=== PATIENT | male | born 1950 | race Caucasian/White ===

== ENCOUNTER → 2016-12-18 | Outpatient (CLI) | payer MEDICARE, BC ==
[~2016-12-18] MED LIST: ACTOS 15MG TAB15 MG PO; ACTOS30 MG PO; ALLEGRA 180MG180 MG PO; ALLEGRA-D 24HR1 T24 PO; ALLERGY SHOTS; AMOXICILLIN 8751 TAB PO; ASPIRIN 32325 MG/TAB PO; ASPIRIN 81M81 MG/TA2 PO; ASPIRIN E.C.325 MG PO; CEPHALEXIN500 M1 PO; CLARITIN-D 10 M1 T24 PO; FLEXERIL 1010 MG/TAB PO; FLONASE NASAL S16 GM NS; GLUCOPHAGE500 MG/TAB PO; GLUCOSAMINE/CHONDROI PO; HCTZ 25MG TAB25 MG PO; LEVAQUIN 750MG750 M1 PO; NORCO 325 MG-51 TAB PO; PHENERGAN 25 TA25 MG PO; PREDNISONE20 MG PO; PRINIVIL10 MG PO; PROAIR HFA0.09 MG/AC IH; TUSS PO; TYLENOL/CODEINE1 ML PO; VENTOLIN0.09 MG; ZITHROMAX Z PA250 MG PO
== END ==
LOC: COL.RAD 08:30
PROVIDERS: Psychiatry & Neurology Neurology
DX: Z13.89 Encounter for screening for other disorder (principal); H93.92 Unspecified disorder of left ear
CPT/HCPCS: A9585

== ENCOUNTER 2017-02-01 22:53 | Observation (INO) | payer MEDICARE, BC ==
[~2017-02-01] VITALS: Ht 182.9 cm; Wt 143.4 kg
[~2017-02-01 22:53] MED LIST changes: -ACTOS 15MG TAB15 MG PO; -ACTOS30 MG PO; -ALLEGRA-D 24HR1 T24 PO; -CLARITIN-D 10 M1 T24 PO; -FLONASE NASAL S16 GM NS; -LEVAQUIN 750MG750 M1 PO; -PREDNISONE20 MG PO; -PROAIR HFA0.09 MG/AC IH
[2017-02-01 23:32] LABS: BASO % 0.6 % (0.0-2.0); EOS # 0.3 (0.0-0.7); EOS % 4.2 % (0-4.0); GRAN # 3.7 (1.4-6.5); GRAN % 56.7 % (42.2-75.2); HEMATOCRIT 46.6 % (42.0-52.0); HEMOGLOBIN 15.4 g/dl (13.5-18.0); LYMPH # 1.6 (1.2-3.4); LYMPH % 24.3 % (20.0-51.0); MEAN CELL VOLUME 90 fl (80.0-100.0); MEAN CORPUSCULAR HEMOGLOBIN 30 pg (27.0-31.0); MEAN CORPUSCULAR HGB CONC 33 g/dl (33.0-37.0); MEAN PLATELET VOLUME 10.5 fl (7.4-10.4); MONO # 0.8 (0.1-0.6); MONO % 12.3 % (1.7-9.3); PLATELET COUNT 170 K/mm3 (130-400); RED BLOOD COUNT 5.17 M/mm3 (4.20-5.60); REDCELL DISTRIBUTION WIDTH-CV 13.8 % (11.5-14.5); WHITE BLOOD COUNT 6.4 K/mm3 (4.8-10.8)
[2017-02-01 23:42] LABS: ADJUSTED CALCIUM 9.1 mg/dL (8.4-10.2); ALANINE AMINOTRANSFERASE 33 U/L (21-72); ALKALINE PHOSPHATASE 73 U/L (50-136); ANION GAP 12 mmol/L (7-16); BILIRUBIN,TOTAL 0.6 mg/dL (0.0-1.0); BLOOD UREA NITROGEN 19 mg/dL (9-20); CALCIUM 9.1 mg/dL (8.4-10.2); CARBON DIOXIDE 28 mmol/L (22-30); CHLORIDE 97 mmol/L (98-107); CREATININE, serum 0.98 mg/dL (0.66-1.25); GLUCOSE 139 mg/dL (74-106); POTASSIUM 4.1 mmol/L (3.4-5.0); SODIUM 137 mmol/L (137-145); TOTAL PROTEIN 7.1 gm/dL (6.4-8.2)
[2017-02-01 23:54] LABS: B-TYPE NATRIURETIC PEPTIDE 43 pg/mL (0-125)
[2017-02-01 23:55] LABS: TROPONIN-I < 0.012 ng/mL (0.000-0.034)
[2017-02-02 00:02] LABS: INR 1.1 (0.8-3.0); PROTHROMBIN TIME 11.8 SECONDS (9.7-12.8)
[2017-02-02 00:05] LABS: PARTIAL THROMBOPLASTIN TIME 38.8 SECONDS (26.0-37.0)
[2017-02-02] MEDS ORDERED: ACTOS 15MG TAB15 MG PO (02:42)
[2017-02-02 03:17] VITALS: BP 126/53; PULSE 77; TEMP 98.9
[2017-02-02 08:16] VITALS: BP 121/69; PULSE 88; TEMP 98
[2017-02-02] MEDS ORDERED: ACTOS30 MG PO (10:02)
[2017-02-02 12:41] VITALS: BP 146/79; PULSE 107; TEMP 98.4
[2017-02-02] MEDS ORDERED: FLONASE NASAL S16 GM NS (15:59)
[2017-02-02] MEDS ORDERED: PROAIR HFA0.09 MG/AC IH (16:01)
[2017-02-02] MEDS ORDERED: LEVAQUIN 750MG750 M1 PO (16:04)
== END 2017-02-02 17:00 | disposition home or self-care (01) ==
LOC: COL.ER 22:53 → MEDICAL 02-02 01:31
PROVIDERS: Emergency Medicine
DX: J18.8 Other pneumonia, unspecified organism (principal); G47.33 Obstructive sleep apnea (adult) (pediatric); I10 Essential (primary) hypertension; E11.9 Type 2 diabetes mellitus without complications; I87.2 Venous insufficiency (chronic) (peripheral)
CPT/HCPCS: 99233-AI; 99238; G0378; J0696; J1650; J1940; J7030; J7512

== ENCOUNTER 2017-02-04 08:50 | Emergency (ER) | payer MEDICARE, BC ==
[2005-10-23 20:04] VITALS: BP 123/74
[~2017-02-04] VITALS: Ht 182.9 cm; Wt 147.7 kg
[~2017-02-04 08:50] MED LIST changes: +ACTOS 15MG TAB15 MG PO; +ACTOS30 MG PO; +FLONASE NASAL S16 GM NS; +LEVAQUIN 750MG750 M1 PO; +PROAIR HFA0.09 MG/AC IH
[2017-02-04 08:53] VITALS: TEMP 99.6
[2017-02-04 09:28] LABS: BASO % 0.5 % (0.0-2.0); EOS # 0.2 (0.0-0.7); GRAN # 5.9 (1.4-6.5); GRAN % 75.2 % (42.2-75.2); HEMATOCRIT 46.4 % (42.0-52.0); HEMOGLOBIN 15.4 g/dl (13.5-18.0); LYMPH # 0.7 (1.2-3.4); LYMPH % 9.2 % (20.0-51.0); MEAN CELL VOLUME 90 fl (80.0-100.0); MEAN CORPUSCULAR HEMOGLOBIN 30 pg (27.0-31.0); MEAN CORPUSCULAR HGB CONC 33 g/dl (33.0-37.0); MEAN PLATELET VOLUME 10.4 fl (7.4-10.4); MONO # 0.8 (0.1-0.6); MONO % 10.7 % (1.7-9.3); PLATELET COUNT 165 K/mm3 (130-400); RED BLOOD COUNT 5.18 M/mm3 (4.20-5.60); REDCELL DISTRIBUTION WIDTH-CV 13.9 % (11.5-14.5); WHITE BLOOD COUNT 7.8 K/mm3 (4.8-10.8)
[2017-02-04 09:41] LABS: ADJUSTED CALCIUM 9.4 mg/dL (8.4-10.2); ALANINE AMINOTRANSFERASE 34 U/L (21-72); ALBUMIN 3.9 gm/dL (3.5-5.0); ALKALINE PHOSPHATASE 56 U/L (50-136); ANION GAP 13 mmol/L (7-16); BILIRUBIN,TOTAL 0.9 mg/dL (0.0-1.0); BLOOD UREA NITROGEN 16 mg/dL (9-20); CALCIUM 9.3 mg/dL (8.4-10.2); CARBON DIOXIDE 24 mmol/L (22-30); CHLORIDE 98 mmol/L (98-107); CREATININE, serum 0.81 mg/dL (0.66-1.25); GLUCOSE 172 mg/dL (74-106); POTASSIUM 3.8 mmol/L (3.4-5.0); SODIUM 134 mmol/L (137-145); TOTAL PROTEIN 7.1 gm/dL (6.4-8.2)
[2017-02-04 09:47] LABS: INR 1.2 (0.8-3.0); PROTHROMBIN TIME 13.3 SECONDS (9.7-12.8)
[2017-02-04 09:50] LABS: PARTIAL THROMBOPLASTIN TIME 36.1 SECONDS (26.0-37.0)
[2017-02-04 09:53] LABS: B-TYPE NATRIURETIC PEPTIDE 45 pg/mL (0-125)
[2017-02-04 09:54] LABS: TROPONIN-I < 0.012 ng/mL (0.000-0.034)
[2017-02-04] MEDS ORDERED: CLARITIN-D 10 M1 T24 PO (10:15)
[2017-02-04] MEDS ORDERED: ACTOS30 MG PO (10:17)
[2017-02-04 13:09] VITALS: BP 144/79; PULSE 100
== END 2017-02-04 13:09 | disposition home or self-care (01) ==
LOC: COL.ER 08:50
PROVIDERS: Family Medicine
DX: J18.9 Pneumonia, unspecified organism (principal); E11.9 Type 2 diabetes mellitus without complications; I11.0 Hypertensive heart disease with heart failure; I50.30 Unspecified diastolic (congestive) heart failure; Z79.84 Long term (current) use of oral hypoglycemic drugs
CPT/HCPCS: J2930

== ENCOUNTER 2017-02-06 10:18 | Emergency (ER) | payer MEDICARE, BC ==
[2005-10-23 20:04] VITALS: BP 123/74
[~2017-02-06] VITALS: Ht 180.3 cm; Wt 147.7 kg
[2017-02-06 10:18] VITALS: BP 146/89; TEMP 96.9
[~2017-02-06 10:18] MED LIST changes: +CLARITIN-D 10 M1 T24 PO
[2017-02-06] MEDS ORDERED: ALLEGRA-D 24HR1 T24 PO (10:25)
[2017-02-06 11:11] LABS: BASO % 0.5 % (0.0-2.0); EOS # 0.2 (0.0-0.7); EOS % 3.8 % (0-4.0); GRAN # 4.4 (1.4-6.5); GRAN % 69.6 % (42.2-75.2); HEMATOCRIT 45.5 % (42.0-52.0); LYMPH # 0.8 (1.2-3.4); LYMPH % 12.2 % (20.0-51.0); MEAN CELL VOLUME 90 fl (80.0-100.0); MEAN CORPUSCULAR HEMOGLOBIN 30 pg (27.0-31.0); MEAN CORPUSCULAR HGB CONC 33 g/dl (33.0-37.0); MEAN PLATELET VOLUME 10.3 fl (7.4-10.4); MONO # 0.8 (0.1-0.6); MONO % 12.5 % (1.7-9.3); PLATELET COUNT 179 K/mm3 (130-400); RED BLOOD COUNT 5.04 M/mm3 (4.20-5.60); REDCELL DISTRIBUTION WIDTH-CV 14.1 % (11.5-14.5); WHITE BLOOD COUNT 6.4 K/mm3 (4.8-10.8)
[2017-02-06 11:24] LABS: ADJUSTED CALCIUM 9.1 mg/dL (8.4-10.2); ALANINE AMINOTRANSFERASE 36 U/L (21-72); ALBUMIN 3.8 gm/dL (3.5-5.0); ALKALINE PHOSPHATASE 76 U/L (50-136); ANION GAP 13 mmol/L (7-16); BILIRUBIN,TOTAL 0.7 mg/dL (0.0-1.0); BLOOD UREA NITROGEN 24 mg/dL (9-20); CALCIUM 8.9 mg/dL (8.4-10.2); CARBON DIOXIDE 23 mmol/L (22-30); CHLORIDE 101 mmol/L (98-107); CREATININE, serum 1.08 mg/dL (0.66-1.25); GLUCOSE 140 mg/dL (74-106); POTASSIUM 3.8 mmol/L (3.4-5.0); SODIUM 137 mmol/L (137-145); TOTAL PROTEIN 6.9 gm/dL (6.4-8.2)
[2017-02-06 11:35] LABS: B-TYPE NATRIURETIC PEPTIDE 90 pg/mL (0-125)
[2017-02-06 11:36] LABS: TROPONIN-I < 0.012 ng/mL (0.000-0.034)
[2017-02-06] MEDS ORDERED: PREDNISONE20 MG PO (12:50)
[2017-02-06 13:06] VITALS: PULSE 93
== END 2017-02-06 13:06 | disposition home or self-care (01) ==
LOC: COL.ER 10:18
PROVIDERS: Emergency Medicine
DX: J20.9 Acute bronchitis, unspecified (principal); E11.9 Type 2 diabetes mellitus without complications; I10 Essential (primary) hypertension; Z79.84 Long term (current) use of oral hypoglycemic drugs
CPT/HCPCS: J2930

== ENCOUNTER → 2017-03-02 | Outpatient (CLI) | payer MEDICARE, BC ==
[~2017-03-02] MED LIST changes: +ALLEGRA-D 24HR1 T24 PO; +PREDNISONE20 MG PO
== END ==
LOC: COL.RAD 10:10
DX: R06.02 Shortness of breath (principal); Z87.01 Personal history of pneumonia (recurrent)
CPT/HCPCS: Q9967

== ENCOUNTER 2017-04-25 01:45 | Emergency (ER) | payer MEDICARE, BC ==
[2005-10-23 20:04] VITALS: BP 123/74
[~2017-04-25] VITALS: Ht 180.3 cm; Wt 147.7 kg
[2017-04-25 01:55] VITALS: TEMP 97.5
[2017-04-25 02:34] LABS: BASO % 0.6 % (0.0-2.0); EOS # 0.3 (0.0-0.7); EOS % 4.5 % (0-4.0); GRAN # 3.9 (1.4-6.5); GRAN % 56.4 % (42.2-75.2); HEMATOCRIT 45.9 % (42.0-52.0); HEMOGLOBIN 15.2 g/dl (13.5-18.0); LYMPH # 1.7 (1.2-3.4); LYMPH % 24.9 % (20.0-51.0); MEAN CELL VOLUME 91 fl (80.0-100.0); MEAN CORPUSCULAR HEMOGLOBIN 30 pg (27.0-31.0); MEAN CORPUSCULAR HGB CONC 33 g/dl (33.0-37.0); MEAN PLATELET VOLUME 10.4 fl (7.4-10.4); MONO # 0.8 (0.1-0.6); MONO % 11.9 % (1.7-9.3); PLATELET COUNT 175 K/mm3 (130-400); RED BLOOD COUNT 5.06 M/mm3 (4.20-5.60); REDCELL DISTRIBUTION WIDTH-CV 13.8 % (11.5-14.5); WHITE BLOOD COUNT 6.9 K/mm3 (4.8-10.8)
[2017-04-25 02:40] LABS: ANION GAP 12 mmol/L (7-16); BLOOD UREA NITROGEN 16 mg/dL (9-20); CALCIUM 8.8 mg/dL (8.4-10.2); CARBON DIOXIDE 23 mmol/L (22-30); CHLORIDE 101 mmol/L (98-107); CREATININE, serum 0.94 mg/dL (0.66-1.25); GLUCOSE 137 mg/dL (74-106); POTASSIUM 4.1 mmol/L (3.4-5.0); SODIUM 136 mmol/L (137-145)
[2017-04-25 02:52] LABS: B-TYPE NATRIURETIC PEPTIDE 46 pg/mL (0-125)
[2017-04-25 02:53] LABS: TROPONIN-I < 0.012 ng/mL (0.000-0.034)
[2017-04-25 03:50] VITALS: BP 138/89; PULSE 89
== END 2017-04-25 03:53 | disposition home or self-care (01) ==
LOC: COL.ER 01:45
PROVIDERS: Emergency Medicine
DX: J06.9 Acute upper respiratory infection, unspecified (principal); R06.02 Shortness of breath; I10 Essential (primary) hypertension; E11.9 Type 2 diabetes mellitus without complications; E66.01 Morbid (severe) obesity due to excess calories; Z85.46 Personal history of malignant neoplasm of prostate; J30.9 Allergic rhinitis, unspecified
CPT/HCPCS: J8540

== ENCOUNTER 2017-11-20 17:52 | Emergency (ER) | payer MEDICARE, BC ==
[2005-10-23 20:04] VITALS: BP 123/74
[~2017-11-20] VITALS: Ht 182.9 cm; Wt 140.9 kg
[2017-11-20 18:01] VITALS: BP 168/102; TEMP 98.3
[2017-11-20] MEDS ORDERED: COZAAR 25MG25 MG/TAB PO (18:07)
[2017-11-20] MEDS ORDERED: ONGLYZA5 MG PO (18:07)
[2017-11-20 18:53] LABS: INFLUENZA A NEGATIVE; INFLUENZA B NEGATIVE
[2017-11-20] MEDS ORDERED: LEVAQUIN 750MG750 M1 PO (19:06)
[2017-11-20] MEDS ORDERED: PREDNISONE20 MG PO (19:06)
[2017-11-20 19:37] VITALS: PULSE 94
== END 2017-11-20 19:38 | disposition home or self-care (01) ==
LOC: COL.ER 17:52
PROVIDERS: Emergency Medicine
DX: J20.9 Acute bronchitis, unspecified (principal); E11.9 Type 2 diabetes mellitus without complications; I10 Essential (primary) hypertension; Z79.84 Long term (current) use of oral hypoglycemic drugs; Z79.82 Long term (current) use of aspirin; Z85.46 Personal history of malignant neoplasm of prostate
CPT/HCPCS: J7512

== ENCOUNTER 2017-11-22 11:17 | Emergency (ER) | payer MEDICARE, BC ==
[2005-10-23 20:04] VITALS: BP 123/74
[~2017-11-22] VITALS: Ht 182.9 cm; Wt 140.9 kg
[~2017-11-22 11:17] MED LIST changes: +COZAAR 25MG25 MG/TAB PO; +ONGLYZA5 MG PO
[2017-11-22 11:23] VITALS: TEMP 99.2
[2017-11-22 12:13] LABS: HEMATOCRIT 48.6 % (42.0-52.0); HEMOGLOBIN 16.1 g/dl (13.5-18.0); MEAN CELL VOLUME 89 fl (80.0-100.0); MEAN CORPUSCULAR HEMOGLOBIN 30 pg (27.0-31.0); MEAN CORPUSCULAR HGB CONC 33 g/dl (33.0-37.0); MEAN PLATELET VOLUME 10.5 fl (7.4-10.4); PLATELET COUNT 138 K/mm3 (130-400); RED BLOOD COUNT 5.46 M/mm3 (4.20-5.60); REDCELL DISTRIBUTION WIDTH-CV 13.6 % (11.5-14.5)
[2017-11-22 12:28] LABS: ALBUMIN 4.2 gm/dL (3.5-5.0); BILIRUBIN,TOTAL 0.8 mg/dL (0.0-1.0); CALCIUM 8.6 mg/dL (8.4-10.2); CREATININE, serum 0.88 mg/dL (0.66-1.25); POTASSIUM 4.3 mmol/L (3.4-5.0)
[2017-11-22 12:31] LABS: BAND 15 % (0-10); BASOPHIL 1 % (0-2); LYMPHOCYTE 11 % (20.0-51.0); NEUTROPHILS 63 % (42.0-75.2); PLATELET ESTIMATE NORMAL (NORMAL)
[2017-11-22 13:27] VITALS: BP 157/98
[2017-11-22 15:28] VITALS: PULSE 97
== END 2017-11-22 15:35 | disposition home or self-care (01) ==
LOC: COL.ER 11:17
PROVIDERS: Nurse Practitioner
DX: J40 Bronchitis, not specified as acute or chronic (principal); E11.9 Type 2 diabetes mellitus without complications; Z79.4 Long term (current) use of insulin; Z85.46 Personal history of malignant neoplasm of prostate
CPT/HCPCS: J1885; J2930; J7030

== ENCOUNTER 2018-01-06 20:52 | Emergency (ER) | payer MEDICARE, BC ==
[2005-10-23 20:04] VITALS: BP 123/74
[~2018-01-06] VITALS: Ht 180.3 cm; Wt 136.4 kg
[2018-01-06 20:57] VITALS: TEMP 98.5
[2018-01-06 21:34] LABS: BASO % 0.7 % (0.0-2.0); EOS # 0.1 (0.0-0.7); EOS % 1.9 % (0-4.0); GRAN # 3.9 (1.4-6.5); GRAN % 67.8 % (42.2-75.2); HEMATOCRIT 47.3 % (42.0-52.0); LYMPH # 0.8 (1.2-3.4); LYMPH % 14.5 % (20.0-51.0); MEAN CELL VOLUME 89 fl (80.0-100.0); MEAN CORPUSCULAR HEMOGLOBIN 30 pg (27.0-31.0); MEAN CORPUSCULAR HGB CONC 34 g/dl (33.0-37.0); MEAN PLATELET VOLUME 11.4 fl (7.4-10.4); MONO # 0.8 (0.1-0.6); MONO % 14.1 % (1.7-9.3); PLATELET COUNT 150 K/mm3 (130-400); RED BLOOD COUNT 5.34 M/mm3 (4.20-5.60); REDCELL DISTRIBUTION WIDTH-CV 13.6 % (11.5-14.5)
[2018-01-06 21:50] LABS: ALANINE AMINOTRANSFERASE 69 U/L (21-72); ALBUMIN 3.9 gm/dL (3.5-5.0); ALKALINE PHOSPHATASE 106 U/L (50-136); ANION GAP 10 mmol/L (7-16); AST,SGOT 63 U/L (15-37); BILIRUBIN,TOTAL 0.6 mg/dL (0.0-1.0); BLOOD UREA NITROGEN 12 mg/dL (9-20); CALCIUM 8.6 mg/dL (8.4-10.2); CARBON DIOXIDE 24 mmol/L (22-30); CHLORIDE 100 mmol/L (98-107); CREATININE, serum 0.85 mg/dL (0.66-1.25); GLUCOSE 265 mg/dL (74-106); POTASSIUM 3.9 mmol/L (3.4-5.0); SODIUM 134 mmol/L (137-145); TOTAL PROTEIN 6.7 gm/dL (6.4-8.2)
[2018-01-06 22:01] LABS: TROPONIN-I < 0.012 ng/mL (0.000-0.034)
[2018-01-06] MEDS ORDERED: VENTOLIN0.09 MG IH (22:17)
[2018-01-06] MEDS ORDERED: PREDNISONE20 MG PO (23:20)
[2018-01-06] MEDS ORDERED: DOXYCYCLINE HY100 MG PO (23:20)
[2018-01-06 23:29] VITALS: BP 157/87; PULSE 100
== END 2018-01-06 23:35 | disposition home or self-care (01) ==
LOC: COL.ER 20:52
PROVIDERS: Emergency Medicine
DX: J20.9 Acute bronchitis, unspecified (principal); R06.02 Shortness of breath; I10 Essential (primary) hypertension; E11.9 Type 2 diabetes mellitus without complications; J45.909 Unspecified asthma, uncomplicated; Z79.82 Long term (current) use of aspirin
CPT/HCPCS: J7030; J7512

== ENCOUNTER 2018-03-02 19:27 | Emergency (ER) | payer MEDICARE, BC ==
[2005-10-23 20:04] VITALS: BP 123/74
[~2018-03-02] VITALS: Wt 136.4 kg
[~2018-03-02 19:27] MED LIST changes: +DOXYCYCLINE HY100 MG PO; +VENTOLIN0.09 MG IH
[2018-03-02 19:55] VITALS: TEMP 99.1
[2018-03-02 20:12] LABS: BASO % 0.4 % (0.0-2.0); EOS # 0.2 (0.0-0.7); EOS % 2.7 % (0-4.0); GRAN # 3.8 (1.4-6.5); GRAN % 66.3 % (42.2-75.2); HEMATOCRIT 46.8 % (42.0-52.0); LYMPH # 0.8 (1.2-3.4); MEAN CELL VOLUME 87 fl (80.0-100.0); MEAN CORPUSCULAR HEMOGLOBIN 30 pg (27.0-31.0); MEAN CORPUSCULAR HGB CONC 34 g/dl (33.0-37.0); MEAN PLATELET VOLUME 10.9 fl (7.4-10.4); MONO # 0.9 (0.1-0.6); MONO % 15.4 % (1.7-9.3); PLATELET COUNT 151 K/mm3 (130-400); RED BLOOD COUNT 5.41 M/mm3 (4.20-5.60); REDCELL DISTRIBUTION WIDTH-CV 13.6 % (11.5-14.5)
[2018-03-02 20:26] LABS: ALBUMIN 3.7 gm/dL (3.5-5.0); BILIRUBIN,TOTAL 0.4 mg/dL (0.0-1.0); C-REACTIVE PROTEIN 0.6 mg/dL (0.0-0.9); CALCIUM 8.6 mg/dL (8.4-10.2); CREATININE, serum 1.02 mg/dL (0.66-1.25); TOTAL PROTEIN 6.7 gm/dL (6.4-8.2)
[2018-03-02] MEDS ORDERED: AMOXICILLIN 50500 MG PO (20:32)
[2018-03-02] MEDS ORDERED: IPRATROPIUM BROM3 M1 IH (21:39)
[2018-03-02 22:24] VITALS: BP 116/71; PULSE 94
== END 2018-03-02 21:56 | disposition home or self-care (01) ==
LOC: COL.ER 19:27
PROVIDERS: Emergency Medicine
DX: J06.9 Acute upper respiratory infection, unspecified (principal); I10 Essential (primary) hypertension; E11.9 Type 2 diabetes mellitus without complications; Z79.82 Long term (current) use of aspirin
CPT/HCPCS: J7030

== ENCOUNTER 2018-08-08 02:04 | Emergency (ER) | payer MEDICARE, BC ==
[2005-10-23 20:04] VITALS: BP 123/74
[~2018-08-08] VITALS: Ht 182.9 cm; Wt 136.4 kg
[~2018-08-08 02:04] MED LIST changes: +AMOXICILLIN 50500 MG PO; +IPRATROPIUM BROM3 M1 IH
[2018-08-08 02:07] VITALS: BP 135/84; TEMP 98
[2018-08-08] MEDS ORDERED: BACTRIM DS 8001 TAB PO (03:08)
[2018-08-08 03:18] VITALS: PULSE 73
== END 2018-08-08 03:31 | disposition home or self-care (01) ==
LOC: COL.ER 02:04
DX: S91.342A Puncture wound with foreign body, left foot, initial encounter (principal); I10 Essential (primary) hypertension; E11.9 Type 2 diabetes mellitus without complications; W26.8XXA Contact with other sharp object(s), not elsewhere classified, initial encounter; Y92.009 Unspecified place in unspecified non-institutional (private) residence as the place of occurrence of the external cause

== ENCOUNTER 2024-02-28 08:34 | Day surgery (SDC) | payer MEDICARE, BC ==
[~2024-02-28 08:34] MED LIST changes: +ALLEGRA 60MG TA60 MG PO; +BACTRIM DS 8001 TAB PO; +COZAAR 50MG50 MG/TAB PO; +LR 1,000 ML IV SCH; +OZEMPIC1 MG/0.71 SQ; +Ondansetron 4 MG/2 ML VIAL IV PRN; +TRESIBA FL100 UNIT/1 SQ
[2024-02-28] MEDS ORDERED: Lidocaine PF 2% (20 MG/ML) 5 ML VIAL ONE (09:44)
--- NOTE | 2024-02-28 11:10 | NUR ---
PATIENT ARRIVED AT ENDOSCOPY UNIT FOR PROCEDURE. PATIENT AND ESCORTED TO [facility] AND JANELLE TODD BEGAN PREPARING THE PATIENT FOR PROCEDURE. PATIENT GOWNED, VSS, AND IV PLACED. JANELLE TODD THEN BEGAN TO GO OVER HOME MEDICATION LIST. PATIENT COULD NOT REMEMBER IF HE TOOK HIS OZEMPIC INJECTION THE NIGHT BEFORE. DR. CRAIG AND DIP LUBE OPERATOR LISS YUN NOTIFIED. PATIENT EXPRESSED THAT HE LIKELY TOOK THE OZEMPIC INJECTION. DR. CRAIG IN ROOM WITH PATIENT, EXPLAINING THAT THE PROCEDURE WILL HAVE TO BE RESCHEDULED. PATIENT DEMONSTRATED UNDERSTANDING. IV REMOVED. PATIENT DISCHARGED FROM THE UNIT. PLAN TO RESCHEDULE PROCEDURE.
== END 2024-02-28 10:45 | disposition home or self-care (01) ==
LOC: SDCO 08:34
DX: R10.11 Right upper quadrant pain (principal); K92.1 Melena; Z53.9 Procedure and treatment not carried out, unspecified reason
CPT/HCPCS: J2704

== ENCOUNTER 2024-03-06 12:17 | Day surgery (SDC) | payer MEDICARE, BC ==
[~2024-03-06] VITALS: Ht 180.3 cm; Wt 131.2 kg
[2024-03-06] MEDS ORDERED: Lidocaine PF 2% (20 MG/ML) 5 ML VIAL ONE (13:33)
[2024-03-06 14:05] VITALS: BP 110/78; PULSE 81
[2024-03-06 14:25] VITALS: BP 115/78; PULSE 75
[2024-03-06 14:45] VITALS: BP 121/79; PULSE 73
[2024-03-06 16:33] VITALS: BP 140/100; PULSE 79; TEMP 97.1
--- NOTE | 2024-03-06 16:36 | NUR ---
1405 PATIENT RETURNS [place] [facility] [place] [facility] [place] [facility]. PT AWAKE AND ALERT. RESPIRATIONS UNLABORED. AMBULATED TO RECLINER CHAIR WITH 2:1 SBA. PT DENIES NAUSEA OR ABDOMINAL PAIN. HOOKED UP TO MONITOR AND VS OBTAINED. CALL LIGHT AT SIDE AND PRESENT. 1415 PATIENT TOLERATING SPRITE AND MUFFIN WITHOUT NAUSEA OR DIFFICULTY SWALLOWING (EGD ONLY). 1430 IN ROOM SPEAKING WITH PATIENT. 1440 D/C INSTRUCTIONS REVIEWED WITH PATIENT. PT VERBALIZED UNDERSTANDING AND A COPY OF INSTRUCTIONS PROVIDED IN D/C FOLDER. 1445 PATIENT DRESSES SELF. 1500 PATIENT DISCHARGED FROM UNIT VIA W/C TO A PERSONAL VEHICLE. PT LEFT HOSPITAL IN STABLE CONDITION.
== END 2024-03-06 15:00 | disposition home or self-care (01) ==
LOC: SDCO 12:17
DX: K29.30 Chronic superficial gastritis without bleeding (principal); K29.80 Duodenitis without bleeding; K92.1 Melena; R19.7 Diarrhea, unspecified
CPT/HCPCS: J2704; J7120